=== PATIENT | male | born 1950 | race Caucasian/White ===

== ENCOUNTER 2016-06-26 07:22 | Day surgery (SDC) | payer MEDICARE, BC ==
[2016-06-26] MEDS ORDERED: ACETAMINOPHEN 325 MG ONE (07:36)
[2016-06-26 07:44] VITALS: TEMP 98.3
[2016-06-26] MEDS: PHENYLEPHRINE HCL 10% OPHTHAL SOL ONE ×2 (07:53→08:05)
[2016-06-26] MEDS: PROPARACAINE HCL 0.5% OPHTHALMIC SOL ONE ×3 (07:53→09:25)
[2016-06-26] MEDS: CYCLOPENTOLATE 1% SOL ONE ×2 (07:54→08:06)
[2016-06-26] MEDS ORDERED: BSS W/ 0.25MG P.F. EPI 1 BOTTLE ONE (08:26)
[2016-06-26] MEDS ORDERED: LIDOCAINE HCL 1% MPF SOL ONE (08:26)
[2016-06-26] MEDS ORDERED: POVIDONE IODINE 5% SOL ONE (08:26)
[2016-06-26] MEDS ORDERED: FENTANYL CITRATE 50 MCG/ML SOL ONE (08:41)
[2016-06-26] MEDS ORDERED: MIDAZOLAM 2 MG/2 ML SOL ONE (08:41)
[2016-06-26] MEDS ORDERED: ACETAZOLAMIDE 500 MG CER ONE (09:25)
[2016-06-26 10:02] VITALS: BP 115/75; PULSE 72; RESP 18; O2SAT 93
== END 2016-06-26 10:25 | disposition home or self-care (01) | DRG 125 ==
LOC: SURG 07:22
PROVIDERS: ATTEND Ophthalmology
DX: H25.9 Unspecified age-related cataract (principal)
CPT/HCPCS: J2250; J3010; J2001

== ENCOUNTER 2017-04-15 05:30 | Inpatient (IN) | payer MEDICARE, BC ==
[2017-04-15] MEDS ORDERED: SODIUM CHLORIDE 0.9% FLUSH 10 ML SOL IV PRN (06:00)
[2017-04-15] MEDS ORDERED: LACTATED RINGERS 1,000 ML IV ONE (06:15)
[2017-04-15] MEDS: SCOPOLAMINE 1.5MG PATCH TD SCH (06:47)
[2017-04-15] MEDS ORDERED: TRANEXAMIC ACID 100 MG/ML SOL ONE ×2 (07:02→07:03)
[2017-04-15] MEDS ORDERED: METOCLOPRAMIDE HYDROCHLORIDE 5 MG/ML SOL ONE (07:23)
[2017-04-15] MEDS ORDERED: ONDANSETRON HCL 4 MG/2 ML SOL ONE (07:23)
[2017-04-15] MEDS ORDERED: PROPOFOL 500 MG/50 ML EMU IV ONE ×2 (07:23→09:03)
[2017-04-15] MEDS ORDERED: FENTANYL 100MCG/2ML SOL ONE (07:23)
[2017-04-15] MEDS ORDERED: CEFAZOLIN SODIUM 1 GM PDS ONE ×2 (07:23→16:55)
[2017-04-15] MEDS ORDERED: LIDOCAINE HCL 1% MPF SOL ONE (07:23)
[2017-04-15] MEDS ORDERED: DEXAMETHASONE 20 MG/5 ML (4 MG/ML SOL) ONE (07:23)
[2017-04-15] MEDS ORDERED: MIDAZOLAM 2 MG/2 ML SOL ONE (07:23)
[2017-04-15] MEDS ORDERED: LACTATED RINGERS 1,000 ML IV SCH (07:30)
[2017-04-15] MEDS ORDERED: SODIUM CHLORIDE 20 ML 40 ML ONE (07:45)
[2017-04-15] MEDS ORDERED: PHENYLEPHRINE HYDROCHLORIDE 10 MG/ML SOL ONE (08:09)
[2017-04-15] MEDS: BUPIVACAINE LIPOSOME 20 ML SUS ONE ×3 (08:50→09:37)
[2017-04-15] MEDS: BUPIVACAINE HCL 0.25% MPF 10 ML SOL INFIL ONE ×3 (08:51→09:37)
[2017-04-15] MEDS ORDERED: KETOROLAC TROMETHAMINE 30 MG/ML SOL ONE (10:03)
[2017-04-15] MEDS ORDERED: ENOXAPARIN 100 MG SOL SC SCH (11:30)
[2017-04-15] MEDS: NICOTINE 21 MG PATCH TD SCH (12:38)
[2017-04-15] MEDS ORDERED: FLEET ENEMA PR PRN (13:14)
[2017-04-15] MEDS ORDERED: MAGNESIUM HYDROXIDE 30 ML SUS PO PRN (13:14)
[2017-04-15] MEDS ORDERED: ZOLPIDEM TARTRATE 5 MG TAB PO PRN (13:14)
[2017-04-15] MEDS ORDERED: BISACODYL 10 MG SUP PR PRN (13:14)
[2017-04-15] MEDS ORDERED: SODIUM CHLORIDE 0.9% 500 ML 500 ML IV PRN (13:14)
[2017-04-15] MEDS ORDERED: ONDANSETRON HCL 4 MG/2 ML SOL IV PRN (13:14)
[2017-04-15] MEDS ORDERED: ALUMINUM/MAGNESIUM 30 ML SUS PO PRN (13:14)
[2017-04-15] MEDS ORDERED: ONDANSETRON 4 MG ODT BU PRN (13:14)
[2017-04-15] MEDS ORDERED: WARFARIN SODIUM 5 MG TAB PO SCH (13:30)
[2017-04-15] MEDS: APAP/OXYCODONE 325/5 TAB PO PRN ×3 (14:20→20:07)
[2017-04-15] MEDS: SODIUM CHLORIDE 0.9% FLUSH 10 ML SOL IV SCH ×2 (14:21→23:05)
[2017-04-15] MEDS: DEXTROSE/SALINE 0.45/KCL 20MEQ 1,000 ML/1,000 ML SOL IV SCH ×2 (14:21→23:07)
[2017-04-15] MEDS ORDERED: CEFAZOLIN (PREMIX) 1 GM 1 GM/50 ML SOL IV SCH ×2 (16:20→19:15)
[2017-04-15] MEDS: CEFAZOLIN SODIUM 1 GM PDS 1 GM in SODIUM CHLORIDE 0.9% 50 ML 50 ML IV SCH (16:45)
[2017-04-15] MEDS: WARFARIN SODIUM 5 MG TAB PO SCH (18:43)
[2017-04-15] MEDS: SIMVASTATIN 20 MG TAB PO SCH (19:30)
[2017-04-15] MEDS: METFORMIN HYDROCHLORIDE 500 MG TAB PO SCH (19:30)
[2017-04-15] MEDS: SENNOSIDES A AND B 8.6 MG TAB PO SCH (19:31)
[2017-04-15] MEDS: GABAPENTIN 300 MG CAP PO SCH (19:31)
[2017-04-16] MEDS ORDERED: CEFAZOLIN SODIUM 1 GM PDS ONE (00:46)
[2017-04-16] MEDS ORDERED: SODIUM CHLORIDE 0.9% 50 ML 50 ML IV ONE (00:46)
[2017-04-16] MEDS: CEFAZOLIN SODIUM 1 GM PDS 1 GM in SODIUM CHLORIDE 0.9% 50 ML 50 ML IV SCH (00:56)
[2017-04-16] MEDS: SODIUM CHLORIDE 0.9% FLUSH 10 ML SOL IV SCH ×4 (00:56→21:26)
[2017-04-16] MEDS: APAP/OXYCODONE 325/5 TAB PO PRN ×6 (01:53→21:30)
[2017-04-16] MEDS: LEVOTHYROXINE SODIUM 137 MCG TAB PO SCH (06:23)
[2017-04-16] MEDS: DIAZEPAM 5 MG TAB PO PRN ×2 (06:36→17:16)
[2017-04-16 07:48] LABS: MEAN CORPUSCULAR HGB CONC 34.7 gm/dl (32.0-36.0)
[2017-04-16] MEDS: ACETAMINOPHEN 325 MG PO PRN ×2 (08:16→11:59)
[2017-04-16] MEDS: GABAPENTIN 300 MG CAP PO SCH ×2 (08:17→21:27)
[2017-04-16] MEDS: MULTIVITAMIN2 1 EA TAB PO SCH (08:17)
[2017-04-16] MEDS: FERROUS SULFATE 325 MG TAB PO SCH (08:17)
[2017-04-16] MEDS: METFORMIN HYDROCHLORIDE 500 MG TAB PO SCH ×2 (08:17→18:17)
[2017-04-16] MEDS: PANTOPRAZOLE SODIUM 40 MG ECT PO SCH (08:18)
[2017-04-16] MEDS: ENOXAPARIN 40 MG SOL SC SCH (08:21)
[2017-04-16] MEDS: NICOTINE 21 MG PATCH TD SCH (11:59)
[2017-04-16] MEDS: WARFARIN SODIUM 5 MG TAB PO SCH (17:47)
[2017-04-16] MEDS: SIMVASTATIN 20 MG TAB PO SCH (21:27)
[2017-04-16] MEDS: SENNOSIDES A AND B 8.6 MG TAB PO SCH (21:27)
[2017-04-17] MEDS: APAP/OXYCODONE 325/5 TAB PO PRN ×4 (04:00→17:59)
[2017-04-17] MEDS: LEVOTHYROXINE SODIUM 137 MCG TAB PO SCH (06:21)
[2017-04-17] MEDS: SODIUM CHLORIDE 0.9% FLUSH 10 ML SOL IV SCH ×3 (06:21→23:08)
[2017-04-17 07:21] LABS: MEAN CORPUSCULAR HGB CONC 34.7 gm/dl (32.0-36.0)
[2017-04-17] MEDS: PANTOPRAZOLE SODIUM 40 MG ECT PO SCH (10:59)
[2017-04-17] MEDS: METFORMIN HYDROCHLORIDE 500 MG TAB PO SCH ×2 (10:59→17:59)
[2017-04-17] MEDS: FERROUS SULFATE 325 MG TAB PO SCH (10:59)
[2017-04-17] MEDS: GABAPENTIN 300 MG CAP PO SCH ×2 (10:59→20:13)
[2017-04-17] MEDS: MULTIVITAMIN2 1 EA TAB PO SCH (11:00)
[2017-04-17] MEDS: DIAZEPAM 5 MG TAB PO PRN (11:12)
[2017-04-17] MEDS: ENOXAPARIN 40 MG SOL SC SCH (11:12)
[2017-04-17] MEDS: NICOTINE 21 MG PATCH TD SCH (12:50)
[2017-04-17] MEDS: WARFARIN SODIUM 5 MG TAB PO SCH (17:59)
[2017-04-17] MEDS: ENOXAPARIN 100 MG SOL SC SCH (20:12)
[2017-04-17] MEDS: SIMVASTATIN 20 MG TAB PO SCH (20:13)
[2017-04-17] MEDS: SENNOSIDES A AND B 8.6 MG TAB PO SCH (20:13)
[2017-04-17] MEDS: ACETAMINOPHEN 325 MG PO PRN (23:06)
[2017-04-18] MEDS: APAP/OXYCODONE 325/5 TAB PO PRN ×4 (01:26→16:01)
[2017-04-18] MEDS: DIAZEPAM 5 MG TAB PO PRN ×3 (04:46→14:37)
[2017-04-18] MEDS: LEVOTHYROXINE SODIUM 137 MCG TAB PO SCH (06:33)
[2017-04-18] MEDS: SODIUM CHLORIDE 0.9% FLUSH 10 ML SOL IV SCH ×2 (06:33→13:13)
[2017-04-18 07:40] LABS: MEAN CORPUSCULAR HGB CONC 35.7 gm/dl (32.0-36.0)
[2017-04-18] MEDS: GABAPENTIN 300 MG CAP PO SCH (10:19)
[2017-04-18] MEDS: ENOXAPARIN 100 MG SOL SC SCH (10:21)
[2017-04-18] MEDS: METFORMIN HYDROCHLORIDE 500 MG TAB PO SCH (10:22)
[2017-04-18] MEDS: PANTOPRAZOLE SODIUM 40 MG ECT PO SCH (10:22)
[2017-04-18] MEDS: FERROUS SULFATE 325 MG TAB PO SCH (10:22)
[2017-04-18] MEDS: MULTIVITAMIN2 1 EA TAB PO SCH (10:22)
[2017-04-18] MEDS: SCOPOLAMINE 1.5MG PATCH TD SCH (11:26)
[2017-04-18] MEDS: NICOTINE 21 MG PATCH TD SCH (13:35)
[2017-04-18 18:04] VITALS: BP 115/76; PULSE 100; RESP 18; TEMP 98.2; O2SAT 97
[2017-04-19] MEDS ORDERED: WARFARIN SODIUM 7.5 MG TAB PO SCH (18:00)
== END 2017-04-18 17:20 | disposition home or self-care (01) | DRG 470 ==
LOC: ACUTE CARE 05:30
PROVIDERS: ADMIT Orthopaedic Surgery; ATTEND Orthopaedic Surgery
PROC: F01ZDFZ Gait and/or Balance Assessment using Assistive, Adaptive, Supportive or Protective Equipment (ICD-10-PCS; 2017-04-15)
PROC: F01ZBZZ Bed Mobility Assessment (ICD-10-PCS; 2017-04-15)
PROC: F01ZCZZ Transfer Assessment (ICD-10-PCS; 2017-04-15)
PROC: 0SRC0J9 Replacement of Right Knee Joint with Synthetic Substitute, Cemented, Open Approach (ICD-10-PCS; principal; 2017-04-15 08:00)
DX: M17.11 Unilateral primary osteoarthritis, right knee (principal); D68.59 Other primary thrombophilia; E11.9 Type 2 diabetes mellitus without complications; Z79.84 Long term (current) use of oral hypoglycemic drugs; Z96.651 Presence of right artificial knee joint; G47.00 Insomnia, unspecified; F17.200 Nicotine dependence, unspecified, uncomplicated; Z86.718 Personal history of other venous thrombosis and embolism; Z79.01 Long term (current) use of anticoagulants
CPT/HCPCS: 36415; 73560; 82962; 85027; 85049; 85610; 94150; 99070; J0690; J1100; J1650; J1885; J2250; J2405; J2765; J3010; A6219; A6232; A6402; J2001; J2704

== ENCOUNTER 2017-05-27 10:58 | Outpatient (CLI) | payer MEDICARE, BC ==
[2017-04-18 18:04] VITALS: O2SAT 97
== END 2017-05-27 10:59 | disposition home or self-care (01) | DRG 561 ==
LOC: RAD 10:58
PROVIDERS: ATTEND Orthopaedic Surgery
DX: Z47.1 Aftercare following joint replacement surgery (principal); M25.461 Effusion, right knee; Z96.651 Presence of right artificial knee joint
CPT/HCPCS: 73562